=== PATIENT | male | born 1970 | race Caucasian/White ===

== ENCOUNTER 2021-11-01 07:26 | Emergency (ER) | payer BC ==
[2021-11-01] MEDS ORDERED: TORAdol 30 mg Injection IV ONE (07:46)
[2021-11-01] MEDS ORDERED: TORAdol 30 mg Injection ONE (07:48)
[2021-11-01] MEDS ORDERED: Sodium Chloride 0.9% 1000 ML 1,000 ML IV STA (08:11)
[2021-11-01] MEDS ORDERED: Sodium Chloride 0.9% 1000 ML 1,000 ML ONE (08:20)
--- NOTE | 2021-11-01 08:40 | ERPHSYRPT ---
- History of Present Illness Historian: patient Exam Limitations: no limitations Patient Subjective Stated Complaint: Right sided flank pain Triage Nursing Assessment: Patient ambulated back to ED and transferred self to bed. Patient A+O X3. Patient's skin pink, warm and dry. Patient complains of right flank pain and right sided abdominal pain since Monday. Patient has hx of kidney stones and contacted his urologist on Monday and prescribed his pain med and told him to go to ER if he needed. Patient complains of constant sharp pain 8/10 to right flank. Abdomen soft and round with BS X 4. patient complains of nausea but denies vomiting. Physician History: 51 yo wm w h/o multiple kidney stones presents w R flank pain x 3 days. Pain is 8/10 but has been up to 10/10. He has had nausea wo vomiting/dysuria/hematuria/fever/chest pain/cough. Pt's urologist is in [place] at . Timing/Duration: other (3 days) Activities at Onset: rest Quality: sharpness, stabbing Abdominal Pain Onset Location: flank (R flank) Pain Radiation: no radiation Severity of Pain-Max: severe Modifying Factors: Improves With: nothing Associated Symptoms: back, nausea, No chest pain, No diaphoresis, No diarrhea, No fever/chills, No fatigue, No headache, No heartburn, No loss of appetite, No neck pain, No rash, No shortness of breath, No syncope, No testicular pain, No vomiting, No weakness Previous symptoms: same symptoms as today Allergies/Adverse Reactions: No Known Drug Allergies Allergy (Unverified 11/01/21 07:31) Hx Influenza Vaccination/Date Given: Yes Hx Pneumococcal Vaccination/Date Given: No Immunizations Up to Date: Yes Travel Risk - International Travel Have you traveled outside of the country in past 3 weeks: No - Coronavirus Screening Are you exhibiting any of the following symptoms?: No Close contact with a COVID-19 positive Pt in past 14-21 Days: No - Vaccine Status Have you recieved a Covid-19 vaccination: Yes 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: [employer] - Vaccination Dates Date of 2cond Vaccination (if applicable): March 2021 - Review of Systems Constitutional: No Symptoms Eyes: No Symptoms Ears, Nose, & Throat: No Symptoms Respiratory: No Symptoms Cardiac: No Symptoms Abdominal/Gastrointestinal: No Symptoms, Nausea Genitourinary Symptoms: No Symptoms, Flank Pain Musculoskeletal: No Symptoms Skin: No Symptoms Neurological: No Symptoms Psychological: No Symptoms Endocrine: No Symptoms Hematologic/Lymphatic: No Symptoms Immunological/Allergic: No Symptoms - Past Medical History Pertinent Past Medical History: Yes Neurological History: No Pertinent History ENT History: No Pertinent History Cardiac History: No Pertinent History Respiratory History: No Pertinent History Endocrine Medical History: No Pertinent History Musculoskeletal History: No Pertinent History GI Medical History: No Pertinent History History: Other Psycho-Social History: No Pertinent History Male Reproductive Disorders: No Pertinent History Other Medical History: partial nephrectomy 2017 - Past Surgical History Past Surgical History: Yes Neuro Surgical History: No Pertinent History Cardiac: No Pertinent History Respiratory: No Pertinent History Gastrointestinal: No Pertinent History Genitourinary: Other Musculoskeletal: No Pertinent History Male Surgical History: No Pertinent History - Social History Smoking Status: Never smoker Exposure to second hand smoke: No Drug Use: none Patient Lives Alone: No Significant Family History: no pertinent family hx - Nursing Vital Signs Nursing Vital Signs: Initial Vital Signs Temperature 97.9 F 11/01/21 07:34 Pulse Rate 88 11/01/21 07:34 Respiratory Rate 18 11/01/21 07:34 Blood Pressure 136/95 11/01/21 07:34 O2 Sat by Pulse Oximetry 97 11/01/21 07:34 Pain Scale Pain Intensity 0 Mildly hypertensive - Physical Exam General Appearance: no apparent distress Eye Exam: PERRL/EOMI, eyes nml inspection Ears, Nose, Throat Exam: normal ENT inspection, TMs normal, pharynx normal, moist mucous membranes Neck Exam: normal inspection, non-tender, supple, full range of motion, No menin gismus, No mass, No Brudzinski, No Kernig's, No carotid bruit Respiratory Exam: normal breath sounds, lungs clear, airway intact, No respiratory distress Cardiovascular Exam: regular rate/rhythm, normal heart sounds, normal peripheral pulses, No murmur Gastrointestinal/Abdomen Exam: soft, normal bowel sounds, No tenderness Rectal Exam: deferred Back Exam: normal inspection, normal range of motion, No CVA tenderness, No vertebral tenderness Extremity Exam: normal inspection, normal range of motion Neurologic Exam: alert, oriented x 3, 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, 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, normal mood/affect, nml cerebellar function, sensation nml, No motor deficits, No sensory deficit Skin Exam: normal color, warm, dry Lymphatic Exam: adenopathy SpO2 Interpretation: normal SpO2: 94 O2 Delivery: Room Air - Course Nursing assessment & vital signs reviewed: Yes - CT Exams Abdomen/Pelvis CT Interpretation: Discussed w/radiologist (1cm prox R ureteral stone) Ordered Tests: Active Orders 24 hr Category Date Time Status ABDOMEN AND PELVIS W/0 CONTRAS [CT] Stat Exams 11/01/21 08:11 Completed CBC W DIFF Stat Lab 11/01/21 08:00 Completed CMP Stat Lab 11/01/21 08:00 Completed UA W/RFX UR CULTURE Stat Lab 11/01/21 08:00 Completed Medication Summary Discontinued Medications Generic Name Dose Route Start Last Admin Trade Name Freq PRN Reason Stop Dose Admin Sodium Chloride 1,000 mls @ 999 mls/hr 11/01/21 08:11 11/01/21 09:56 Sodium Chloride 0.9% 1000 Ml IV 11/01/21 09:11 Infused .Q1H1M STA Infusion Sodium Chloride Confirm 11/01/21 08:20 Sodium Chloride 0.9% 1000 Ml Administered 11/01/21 08:21 Dose 1,000 mls @ ud .ROUTE .STK-MED ONE Ketorolac Tromethamine 15 mg 11/01/21 07:46 11/01/21 07:50 Ketorolac Tromethamine 30 Mg/Ml Inj IV 11/01/21 07:47 15 mg STAT ONE Administration Ketorolac Tromethamine Confirm 11/01/21 07:48 Ketorolac Tromethamine 30 Mg/Ml Inj Administered 11/01/21 07:49 Dose 30 mg .ROUTE .STK-MED ONE Lab/Rad Data: Laboratory Result Diagrams 11/01/21 08:00 11/01/21 08:00 Laboratory Results 11/01/21 11/01/21 11/01/21 Range/Units 08:00 08:00 08:00 WBC 11.6 H (4.0-10.5) K/mm3 RBC 4.54 (4.1-5.6) M/mm3 Hgb 14.5 (12.5-18.0) gm/dl Hct 44.0 (42-50) % MCV 96.9 (78-100) fl MCH 31.9 (26-32) pg MCHC 33.0 (32-36) g/dl RDW 14.0 (11.5-14.0) % Plt Count 222 (150-450) K/mm3 MPV 12.3 H (7.5-11.0) fl Gran % 62.4 (36.0-66.0) % Eos # (Auto) 0.11 (0-0.5) Absolute Lymphs (auto) 2.73 (1.0-4.6) Absolute Monos (auto) 1.51 H (0.0-1.3) Lymphocytes % 23.6 L (24.0-44.0) % Monocytes % 13.0 H (0.0-12.0) % Eosinophils % 0.9 (0.00-5.0) % Basophils % 0.1 (0.0-0.4) % Absolute Granulocytes 7.22 H (1.4-6.9) Basophils # 0.01 (0-0.4) Sodium 137 (137-145) mmol/L Potassium 3.4 L (3.5-5.1) mmol/L Chloride 104 (98-107) mmol/L Carbon Dioxide 25 (22-30) mmol/L Anion Gap 11.5 (5-15) MEQ/L BUN 13 (9-20) mg/dL Creatinine 1.59 H (0.66-1.25) mg/dL Estimated GFR 49.2 ML/MIN Glucose 101 (74-106) mg/dL Calcium 8.9 (8.4-10.2) mg/dL Total Bilirubin 1.00 (0.2-1.3) mg/dL AST 25 (17-59) U/L ALT 19 (0-50) U/L Alkaline Phosphatase 76 (38-126) U/L Serum Total Protein 7.5 (6.3-8.2) g/dL Albumin 4.2 (3.5-5.0) g/dL Urine Color STRAW (YELLOW) Urine Appearance CLEAR (CLEAR) Urine pH 6.0 (5-6) Ur Specific [place] 1.004 (1.005-1.025) Urine Protein NEGATIVE (Negative) Urine Ketones NEGATIVE (NEGATIVE) Urine Blood MODERATE (0-5) Barrie/ul Urine Nitrite NEGATIVE (NEGATIVE) Urine Bilirubin NEGATIVE (NEGATIVE) Urine Urobilinogen NEGATIVE (0-1) mg/dL Ur Leukocyte Esterase NEGATIVE (NEGATIVE) Urine WBC (Auto) 0-2 (0-5) /HPF Urine RBC (Auto) 3-5 (0-2) /HPF U Epithel Cells (Auto) FEW (FEW) /HPF Urine Bacteria (Auto) FEW (NEGATIVE) /HPF Urine Culture Reflexed NO (NO) Urine Glucose NEGATIVE (NEGATIVE) mg/dL Slides for Path Review YES - Progress Progress Note: 11/01/21 11:21 Pt's pain 1-2 after 15mg IV Toradol 1L NS bolus Spoke w Dr. Callejas, will have office call for appointment. Wants to start Flomax. 11/01/21 11:28 11/01/21 18:19 Dr. Callejas wants pt to go to ER in [place] if worse. Counseled pt/family regarding: lab results, diagnosis, need for follow-up, rad results - Departure Departure Disposition: Home Clinical Impression: Ureterolithiasis Condition: Stable Critical Care Time: No Referrals: HEBERT FLORES [Primary Care Provider] - Follow up/PCP as directed Instructions: Kidney Stones (DC) Additional Instructions: Strain all urine Pain meds as needed Flomax once a day If pain restarts or if you develop a temperature greater than 100.5, go to aER in [place] per Dr. Callejas, so that you can be admitted Prescriptions: Tamsulosin HCl 0.4 mg [Flomax 0.4 MG] 0.4 mg PO DAILY #7 cap Oxycodone HCl/Acetaminophen [Percocet 10-325 mg Tablet] 1 each PO Q4-6HPRN PRN #7 tablet MDD 4 tabs PRN Reason: Pain
--- NOTE | 2021-11-01 09:31 | XRAY ---
Indication: Right flank pain. Multiple contiguous axial images obtained through the abdomen and pelvis without contrast using renal stone protocol. Comparison: None Lung bases demonstrates a few tiny right lower lobe calcified granulomas. No infiltrate or effusion. Heart not enlarged. Proximal right ureter demonstrates a 1 cm calculus, approximately L3 level. Moderate hydronephrosis consistent with obstructive uropathy. Additional two right and one left renal calculi, largest on the left measuring 1 cm. Previous gastric bypass surgery. Noncontrasted stomach and bowel loops nonobstructed. Normal appendix. No free fluid/air. Tiny gallstones/gravel near the fundus of the gallbladder. Spleen is enlarged measuring 15.2 cm with calcified granuloma. Remaining liver, gallbladder, pancreas, spleen, adrenal glands, kidneys, ureters, bladder, and aorta are unremarkable for noncontrast exam. Osseous structures intact with mild degenerative changes throughout the thoracolumbar spine. 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 Impression: 1. 1 cm proximal right ureter calculus producing obstructive uropathy as detailed. Additional bilateral renal calculi. 2. Tiny gallstones/gravel, chronic bony findings, and old granulomatous disease.
[2021-11-01 09:35] LABS: Absolute Neutrophil Ct (ANC) 7.22 (1.4-6.9); Basophil (Absolute #) 0.01 (0-0.4); Eosinophil % 0.9 % (0.00-5.0); Eosinophil (Absolute #) 0.11 (0-0.5); Hemoglobin 14.5 gm/dl (12.5-18.0); Lymphocyte (Absolute #) 2.73 (1.0-4.6); Lymphocytes % 23.6 % (24.0-44.0); Mean Cell Volume 96.9 fl (78-100); Mean Corpuscular Hemoglobin 31.9 pg (26-32); Mean Platelet Volume 12.3 fl (7.5-11.0); Monocyte (Absolute #) 1.51 (0.0-1.3); Neutrophil % 62.4 % (36.0-66.0); Platelet Count 222 K/mm3 (150-450); Red Blood Count 4.54 M/mm3 (4.1-5.6); White Blood Count 11.6 K/mm3 (4.0-10.5)
[2021-11-01 09:43] LABS: Appearance CLEAR (CLEAR); Bilirubin NEGATIVE (NEGATIVE); Blood MODERATE Ery/ul (0-5); Glucose NEGATIVE (NEGATIVE); Ketones NEGATIVE (NEGATIVE); Leukocyte Esterase NEGATIVE (NEGATIVE); Nitrite NEGATIVE (NEGATIVE); Protein,Urine Dip NEGATIVE (Negative); Specific Gravity 1.004 (1.005-1.025); Urobilinogen NEGATIVE mg/dL (0-1); WBC 0-2 /HPF (0-5)
[2021-11-01 09:44] LABS: ALBUMIN 4.2 g/dL (3.5-5.0); ANION GAP 11.5 MEQ/L (5-15); Bacteria FEW /HPF (NEGATIVE); Calcium 8.9 mg/dL (8.4-10.2); Creatinine 1 1.59 mg/dL (0.66-1.25); EST GLOMERULAR FILTRATION RATE 49.2 ML/MIN; Epithelial Cells FEW /HPF (FEW); Potassium 3.4 mmol/L (3.5-5.1); Total Protein 7.5 g/dL (6.3-8.2)
[2021-11-01 09:53] LABS: Slide Review 1 YES
[2021-11-01 11:30] VITALS: BP 129/73; PULSE 70
[2021-11-01 11:34] VITALS: O2SAT 94
== END 2021-11-01 11:38 | disposition home or self-care (01) ==
LOC: ED 07:26
DX: N20.1 Calculus of ureter (principal); Z87.442 Personal history of urinary calculi; R10.9 Unspecified abdominal pain; R11.0 Nausea; Z79.891 Long term (current) use of opiate analgesic
CPT/HCPCS: 36000; 36415; 74176; 80053; 81001; 85025; 96360; 96374; 99284; J1885

== ENCOUNTER 2022-01-17 18:49 | Emergency (ER) | payer BC ==
[2022-01-17] MEDS ORDERED: MORPHINE SULFATE 4 MG INJ IV ONE ×2 (19:58→21:54)
[2022-01-17] MEDS ORDERED: Zofran 4 MG/2 ML VIAL IV ONE (19:58)
[2022-01-17] MEDS ORDERED: Sodium Chloride 0.9% 1000 ML 1,000 ML IV SCH (20:00)
--- NOTE | 2022-01-17 20:08 | ERPHSYRPT ---
- History of Present Illness Time Seen by Provider: 01/17/22 19:50 Historian: patient Exam Limitations: no limitations Patient Subjective Stated Complaint: Pt states "I have ulcerative colitis and I was prescribed prednisone for it and I think I have a ulcer from it. " Triage Nursing Assessment: Pt presents to ED ambulatory to bed, pt c/o diffuse abd pain for 2 weeks, pt has hx of ulcerative colitis and was prescribed prednisone 20 mg for it, pt is currently on 3 pills a day, pt c/o of diarrhea for a couple days, last BM was 01/17/2022 at 1600, denies blood in stool, denies fever or vomiting, rating pain 8/10 Physician History: Patient is a 52-year-old male presents to emergency department for evaluation of diffuse abdominal pain. Patient has a history of ulcerative colitis. He is on prednisone 20 mg 3 times daily. Patient has had issues with chronic steroid use. Patient states he had a bowel movement that was dark and tarry. 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 Felecia Payne who advised patient come to our ED for an evaluation. Patient's pain described as an ache that is generalized. Pain rated 8 out of 10. No associated fever. No vomiting. No chest pain or shortness of breath. No patsy blood. No hematochezia. Symptoms are moderate in intensity. No specific worsening or improving factors. Patient voices no other complaints or concerns at this time. Timing/Duration: day(s) (2 days) Activities at Onset: none Quality: aching Abdominal Pain Onset Location: generalized abdomen Pain Radiation: no radiation Severity of Pain-Max: moderate Severity of Pain-Current: moderate Modifying Factors: Improves With: nothing Associated Symptoms: diarrhea, No fever/chills, No vomiting Previous symptoms: same symptoms as today Allergies/Adverse Reactions: No Known Drug Allergies Allergy (Verified 01/17/22 19:34) Home Medications: Prednisone 20 mg [Deltasone 20 mg] 01/17/22 [History] Hx Tetanus, Diphtheria Vaccination/Date Given: Yes Hx Influenza Vaccination/Date Given: No Hx Pneumococcal Vaccination/Date Given: No Immunizations Up to Date: Yes Travel Risk - International Travel Have you traveled outside of the country in past 3 weeks: No - Coronavirus Screening Are you exhibiting any of the following symptoms?: No Close contact with a COVID-19 positive Pt in past 14-21 Days: No - Vaccine Status Have you recieved a Covid-19 vaccination: Yes 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: [employer] - Vaccination Dates Date of 2cond Vaccination (if applicable): March 2021 - Review of Systems Constitutional: No Symptoms, No Fever, No Chills Eyes: No Symptoms Ears, Nose, & Throat: No Symptoms Respiratory: No Symptoms, No Cough, No Dyspnea Cardiac: No Symptoms, No Chest Pain, No Edema, No Syncope Abdominal/Gastrointestinal: No Symptoms, No Abdominal Pain, No Nausea, No Vomiting, No Diarrhea Genitourinary Symptoms: No Symptoms, No Dysuria Musculoskeletal: No Symptoms, No Back Pain, No Neck Pain Skin: No Symptoms, No Rash Neurological: No Symptoms, No Dizziness, No Focal Weakness, No Sensory Changes Psychological: No Symptoms Endocrine: No Symptoms Hematologic/Lymphatic: No Symptoms Immunological/Allergic: No Symptoms All Other Systems: Reviewed and Negative - Past Medical History Pertinent Past Medical History: Yes Neurological History: No Pertinent History ENT History: No Pertinent History Cardiac History: No Pertinent History Respiratory History: No Pertinent History Endocrine Medical History: No Pertinent History Musculoskeletal History: No Pertinent History GI Medical History: No Pertinent History History: Other Psycho-Social History: No Pertinent History Male Reproductive Disorders: No Pertinent History Other Medical History: partial nephrectomy 2017. ulcerative colitis - Past Surgical History Past Surgical History: Yes Neuro Surgical History: No Pertinent History Cardiac: No Pertinent History Respiratory: No Pertinent History Gastrointestinal: No Pertinent History Genitourinary: Other Musculoskeletal: No Pertinent History Male Surgical History: No Pertinent History - Social History Smoking Status: Never smoker Exposure to second hand smoke: No Drug Use: none Patient Lives Alone: No Significant Family History: no pertinent family hx - Nursing Vital Signs Nursing Vital Signs: Initial Vital Signs Temperature 98.2 F 01/17/22 19:35 Pulse Rate 77 01/17/22 19:35 Respiratory Rate 16 01/17/22 19:35 Blood Pressure 131/79 01/17/22 19:35 O2 Sat by Pulse Oximetry 99 01/17/22 19:35 Pain Scale Pain Intensity 6 - Physical Exam General Appearance: no apparent distress, alert Eye Exam: PERRL/EOMI, eyes nml inspection Ears, Nose, Throat Exam: normal ENT inspection, TMs normal, pharynx normal, moist mucous membranes Neck Exam: normal inspection, non-tender, supple, full range of motion Respiratory Exam: normal breath sounds, lungs clear, airway intact, No respiratory distress Cardiovascular Exam: regular rate/rhythm, normal heart sounds, normal peripheral pulses Gastrointestinal/Abdomen Exam: soft, other (Generalized abdominal pain. 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 Tiny gallbladder sludge/gravel, and L5 spondylolysis without spondylolisthesis. No new acute findings.) Ordered Tests: Active Orders 24 hr Category Date Time Status IV Insertion STAT Care 01/17/22 19:58 Active ABDOMEN AND PELVIS W CONTRAST [CT] Stat Exams 01/17/22 19:59 Taken CBC W DIFF Stat Lab 01/17/22 20:20 Completed CMP Stat Lab 01/17/22 20:20 Completed LIPASE Stat Lab 01/17/22 20:20 Completed TROPONIN Q3H Lab 01/17/22 20:20 Completed TROPONIN Q3H Lab 01/17/22 23:00 Ordered TROPONIN Q3H Lab 01/18/22 02:00 Ordered TROPONIN Q3H Lab 01/18/22 05:00 Ordered TROPONIN Q3H Lab 01/18/22 08:00 Ordered Medication Summary Generic Name Dose Route Start Last Admin Trade Name Freq PRN Reason Stop Dose Admin Sodium Chloride 1,000 mls @ 100 mls/hr 01/17/22 20:00 01/17/22 20:23 Sodium Chloride 0.9% 1000 Ml IV 02/16/22 19:59 100 mls/hr .Q10H NOHELIA Administration Discontinued Medications Generic Name Dose Route Start Last Admin Trade Name Freq PRN Reason Stop Dose Admin Morphine Sulfate 4 mg 01/17/22 19:58 01/17/22 20:22 Morphine Sulfate 4 Mg/Ml Injection IV 01/17/22 19:59 4 mg STAT ONE Administration Morphine Sulfate Confirm 01/17/22 20:22 Morphine Sulfate 4 Mg/Ml Injection Administered 01/17/22 20:23 Dose 4 mg .ROUTE .STK-MED ONE Morphine Sulfate 4 mg 01/17/22 21:54 01/17/22 21:57 Morphine Sulfate 4 Mg/Ml Injection IV 01/17/22 21:55 4 mg STAT ONE Administration Morphine Sulfate Confirm 01/17/22 21:56 Morphine Sulfate 4 Mg/Ml Injection Administered 01/17/22 21:57 Dose 4 mg .ROUTE .STK-MED ONE Ondansetron HCl 4 mg 01/17/22 19:58 01/17/22 20:22 Ondansetron Hcl 4 Mg/2 Ml Vial IV 01/17/22 19:59 4 mg STAT ONE Administration Ondansetron HCl Confirm 01/17/22 20:22 Ondansetron Hcl 4 Mg/2 Ml Vial Administered 01/17/22 20:23 Dose 4 mg .ROUTE .STK-MED ONE Lab/Rad Data: Laboratory Result Diagrams 01/17/22 20:20 01/17/22 20:20 Laboratory Results 01/17/22 01/17/22 01/17/22 Range/Units 20:20 20:20 20:20 WBC 10.5 (4.0-10.5) K/mm3 RBC 4.62 (4.1-5.6) M/mm3 Hgb 15.2 (12.5-18.0) gm/dl Hct 45.9 (42-50) % MCV 99.4 (78-100) fl MCH 32.9 H (26-32) pg MCHC 33.1 (32-36) g/dl RDW 14.7 H (11.5-14.0) % Plt Count 163 (150-450) K/mm3 MPV 11.5 H (7.5-11.0) fl Gran % 62.8 (36.0-66.0) % Eos # (Auto) 0.08 (0-0.5) Absolute Lymphs (auto) 3.06 (1.0-4.6) Absolute Monos (auto) 0.77 (0.0-1.3) Lymphocytes % 29.0 (24.0-44.0) % Monocytes % 7.3 (0.0-12.0) % Eosinophils % 0.8 (0.00-5.0) % Basophils % 0.1 (0.0-0.4) % Absolute Granulocytes 6.62 (1.4-6.9) Basophils # 0.01 (0-0.4) Sodium 142 (137-145) mmol/L Potassium 3.8 (3.5-5.1) mmol/L Chloride 107 (98-107) mmol/L Carbon Dioxide 27 (22-30) mmol/L Anion Gap 12.8 (5-15) MEQ/L BUN 13 (9-20) mg/dL Creatinine 0.94 (0.66-1.25) mg/dL Estimated GFR > 60.0 ML/MIN Glucose 104 (74-106) mg/dL Calcium 8.0 L (8.4-10.2) mg/dL Total Bilirubin 0.50 (0.2-1.3) mg/dL AST 20 (17-59) U/L ALT 30 (0-50) U/L Alkaline Phosphatase 72 (38-126) U/L Troponin I < 0.012 (0.000-0.034) ng/mL Serum Total Protein 6.5 (6.3-8.2) g/dL Albumin 3.7 (3.5-5.0) g/dL Lipase 66 (23-300) U/L - Progress Progress: improved Progress Note: Case discussed with Dr. Caballero, Dr. Felecia paynes group partner. He does not feel patient needs to be transferred as his vitals are stable his hemoglobin is normal and patient's pain is controlled at this time. He advises 40 mg of Protonix twice daily and follow-up with Dr. Payne on Monday as scheduled. Plan of care discussed with patient. He agrees with plan of care. He will fol low-up with Dr. Payne on Monday as discussed. We will administer a dose of Protonix in our ED prior to discharge. 01/17/22 22:35 Patient received for [place] for home. A handwritten prescription for [place] was also provided to patient. Portions of this note were created with voice recognition technology. There may be grammatical, spelling, punctuation or sound alike errors 01/17/22 22:53 Counseled pt/family regarding: lab results, diagnosis, rad results - Departure Departure Disposition: Home Clinical Impression: Dark stools, Epigastric pain Condition: Stable Critical Care Time: No Referrals: HEBERT FLORES [Primary Care Provider] - Follow up/PCP as directed Additional Instructions: Discharge/Care Plan DENG STANLEY was seen on 01/17/22 in the Emergency Room. The patient was counseled regarding Diagnosis,Lab results, Imaging studies, need for follow up and when to return to the Emergency Room. Prescriptions given: Discharge Note I have spoken with the patient and/or caregivers. I have explained the patient's condition, diagnosis and treatment plan based on the information available to me at this time. I have answered the patient's and/or caregiver's questions and addressed any concerns. The patient and/or caregivers have as good understanding of the patient's diagnosis, condition and treatment plan as can be expected at this point. The vital signs have been stable. The patient's condition is stable and appropriate for discharge from the emergency department. The patient will pursue further outpatient evaluation with the primary care physician or other designated or consulting physician as outlined in the discharge instructions. The patient and/or caregivers are agreeable to this plan of care and follow-up instructions have been explained in detail. The patient and/or caregivers have received these instruction. The patient/and or caregivers are aware that any significant change in condition or worsening of symptoms should prompt an immediate return to this or the closest emergency department or call 911. Prescriptions: PANTOPRAZOLE 40 mg Tablet [Protonix 40MG Tablet] 40 mg PO BID 7 Days #14 tab
[2022-01-17] MEDS ORDERED: Sodium Chloride 0.9% 1000 ML 1,000 ML ONE (20:22)
[2022-01-17] MEDS ORDERED: MORPHINE SULFATE 4 MG INJ ONE ×2 (20:22→21:56)
[2022-01-17] MEDS ORDERED: Zofran 4 MG/2 ML VIAL ONE (20:22)
[2022-01-17 20:27] LABS: Absolute Neutrophil Ct (ANC) 6.62 (1.4-6.9); Basophil (Absolute #) 0.01 (0-0.4); Eosinophil % 0.8 % (0.00-5.0); Eosinophil (Absolute #) 0.08 (0-0.5); Hematocrit 45.9 % (42-50); Hemoglobin 15.2 gm/dl (12.5-18.0); Lymphocyte (Absolute #) 3.06 (1.0-4.6); Mean Cell Volume 99.4 fl (78-100); Mean Corpuscular Hemoglobin 32.9 pg (26-32); Mean Corpuscular Hgb Concent. 33.1 g/dl (32-36); Mean Platelet Volume 11.5 fl (7.5-11.0); Monocyte (Absolute #) 0.77 (0.0-1.3); Monocytes % 7.3 % (0.0-12.0); Neutrophil % 62.8 % (36.0-66.0); Platelet Count 163 K/mm3 (150-450); Red Blood Count 4.62 M/mm3 (4.1-5.6); Red Cell Distribution Width 14.7 % (11.5-14.0); White Blood Count 10.5 K/mm3 (4.0-10.5)
[2022-01-17 20:58] LABS: ALBUMIN 3.7 g/dL (3.5-5.0); ALKALINE PHOSPHATASE 72 U/L (38-126); ANION GAP 12.8 MEQ/L (5-15); BLOOD UREA NITROGEN 13 mg/dL (9-20); CHLORIDE 107 mmol/L (98-107); Carbon Dioxide 27 mmol/L (22-30); Creatinine 1 0.94 mg/dL (0.66-1.25); EST GLOMERULAR FILTRATION RATE > 60.0 ML/MIN; Glucose 104 mg/dL (74-106); LIPASE 66 U/L (23-300); Potassium 3.8 mmol/L (3.5-5.1); SGOT/AST 20 U/L (17-59); SGPT/ALT 30 U/L (0-50); SODIUM 142 mmol/L (137-145); Total Protein 6.5 g/dL (6.3-8.2)
[2022-01-17] MEDS ORDERED: PROTONIX 40 MG IV IV ONE ×2 (22:36→22:43)
[2022-01-17 22:42] VITALS: O2SAT 99
[2022-01-17] MEDS ORDERED: NORCO 5/325 MG PO ONE (22:44)
[2022-01-17] MEDS ORDERED: NORCO 5/325 MG ONE (22:49)
[2022-01-17 23:07] VITALS: BP 123/66; PULSE 76
--- NOTE | 2022-01-18 09:03 | XRAY ---
Indication: Abdomen pain. History of colitis and bleeding ulcer. Multiple contiguous axial images obtained through the abdomen and pelvis using 80 cc Isovue 370 contrast. Comparison: November 01, 2021. Lung bases again demonstrates tiny right lower lobe and right infrahilar calcified granulomas. Minimal bibasilar dependent atelectasis. No infiltrate or effusion. Heart not enlarged. Again previous bariatric surgery. Noncontrasted stomach and bowel loops are nonobstructed again with normal appendix. Gallbladder normally distended again with tiny sludge/gravel in the dependent portion. Left lobe liver demonstrate stable 6 mm cyst. Both kidneys enhance and excrete with incidental 1.2 cm left upper pole renal cyst. No free fluid/air. Remaining liver, gallbladder, pancreas, spleen, adrenal glands, kidneys, ureters, bladder, and aorta appear unremarkable. No pathologic retroperitoneal lymphadenopathy. Osseous structures intact again with mild degenerative changes throughout the spine and left L5 spondylolysis without spondylolisthesis. No ventral or inguinal hernias. Impression: 1. Again bariatric surgery, tiny gallbladder gravel/sludge, tiny hepatic cyst, small left renal cyst, chronic bony findings, and old granulomatous disease. 2. Remaining CT abdomen/pelvis with contrast exam is negative.
== END 2022-01-17 23:08 | disposition home or self-care (01) ==
LOC: ED 18:49
DX: R10.13 Epigastric pain (principal); K92.1 Melena; K51.90 Ulcerative colitis, unspecified, without complications; Z79.52 Long term (current) use of systemic steroids; Z79.891 Long term (current) use of opiate analgesic
CPT/HCPCS: 36000; 36415; 74177; 80053; 83690; 84484; 85025; 96374; 96375; 99284; J2270; J2405; A9270-GY

== ENCOUNTER 2023-09-23 11:21 | Emergency (ER) | payer BC ==
[2023-09-23 11:44] VITALS: PULSE 98; TEMP 96.3; O2SAT 97
--- NOTE | 2023-09-23 11:51 | ERPHSYRPT ---
- History of Present Illness Time Seen by Provider: 09/23/23 11:49 Source: patient Exam Limitations: no limitations Patient Subjective Stated Complaint: Pt states that for a week he has had congestion, cough, off and on headache and fever, body aches, chest hurts from coughing, went to [facility] 2 days ago and tested for flu and covid and both were negative Triage Nursing Assessment: Pt brought self to the ER, vitals wnl, rates chest discomfort at 4/10 due to coughing, pulses normal, skin n/w/d, daughter and grandchild staying with pt and they are Flu A +, cough, congestion Physician History: Pt states that for a week he has had congestion, cough, off and on headache and fever, body aches, chest hurts from coughing, went to [facility] 2 days ago and tested for flu and covid and both were negative daughter and grandchild staying with pt and they are Flu A +, cough, congestion Timing/Duration: day(s) (3 days) Cough Quality/Degree: dry cough Associated Symptoms: chest pain/soreness, cough, headache, muscle aches, sore throat Allergies/Adverse Reactions: No Known Drug Allergies Allergy (Verified 09/23/23 11:44) Home Medications: Allopurinol 300 mg [Zyloprim 300 mg] 300 mg PO DAILY 09/23/23 [History] Cyanocobalamin 1000 Mcg/ml [Cyanocobalamin B-12 1000 MCG/ML] 1,000 mcg IJ UD 09/23/23 [History] Hydrocodone/Acetaminophen [Hydrocodone-Acetamin 5-325 mg] 1 tab PO BID PRN 09/23/23 [History] Metoprolol Succinate 25 mg Xl* [Toprol-Xl 25MG Tablets] 25 mg PO DAILY 09/23/23 [History] Upadacitinib [Rinvoq] 45 mg PO DAILY 09/23/23 [History] Hx Tetanus, Diphtheria Vaccination/Date Given: Yes Hx Influenza Vaccination/Date Given: No Hx Pneumococcal Vaccination/Date Given: No Travel Risk - International Travel Have you traveled outside of the country in past 3 weeks: No - Coronavirus Screening Symptoms: Fever, Cough: New Onset, Shortness of Breath, Headaches/Body Aches/Fatigue Close contact with a COVID-19 positive Pt in past 14-21 Days: No - Vaccine Status Have you recieved a Covid-19 vaccination: Yes [employer]: Pfizer - Vaccination Dates Date of 2cond Vaccination (if applicable): March 2021 - Review of Systems Constitutional: Fever, Chills, Malaise, Weakness Eyes: No Symptoms Ears, Nose, & Throat: No Symptoms Respiratory: Cough, No Dyspnea Cardiac: Chest Pain, No Edema, No Syncope Abdominal/Gastrointestinal: No Abdominal Pain, No Nausea, No Vomiting, No Diarrhea Genitourinary Symptoms: No Dysuria Musculoskeletal: No Back Pain, No Neck Pain Skin: No Rash Neurological: No Dizziness, No Focal Weakness, No Sensory Changes Psychological: No Symptoms Endocrine: No Symptoms All Other Systems: Reviewed and Negative - Past Medical History Pertinent Past Medical History: Yes Neurological History: No Pertinent History ENT History: No Pertinent History Cardiac History: No Pertinent History Respiratory History: No Pertinent History Endocrine Medical History: No Pertinent History Musculoskeletal History: No Pertinent History GI Medical History: No Pertinent History History: Other Psycho-Social History: No Pertinent History Male Reproductive Disorders: No Pertinent History Other Medical History: partial nephrectomy 2017. ulcerative colitis - Past Surgical History Past Surgical History: Yes Neuro Surgical History: No Pertinent History Cardiac: No Pertinent History Respiratory: No Pertinent History Gastrointestinal: No Pertinent History Genitourinary: Other Musculoskeletal: No Pertinent History Male Surgical History: No Pertinent History - Social History Smoking Status: Never smoker Exposure to second hand smoke: No Drug Use: none Patient Lives Alone: No Significant Family History: no pertinent family hx - Nursing Vital Signs Nursing Vital Signs: Initial Vital Signs Temperature 96.3 F 09/23/23 11:33 Pulse Rate 98 H 09/23/23 11:33 Blood Pressure 114/75 09/23/23 11:33 O2 Sat by Pulse Oximetry 96 09/23/23 11:33 Pain Scale Pain Intensity 4 - Physical Exam General Appearance: no apparent distress, alert Eye Exam: PERRL/EOMI, eyes nml inspection Ears, Nose, Throat Exam: normal ENT inspection, TMs normal, pharynx normal, moist mucous membranes Neck Exam: normal inspection, non-tender, supple, full range of motion Respiratory Exam: normal breath sounds, lungs clear, No respiratory distress Cardiovascular Exam: regular rate/rhythm, normal heart sounds Gastrointestinal/Abdomen Exam: soft, No tenderness Back Exam: normal inspection, No CVA tenderness, No vertebral tenderness Extremity Exam: normal inspection, normal range of motion Neurologic Exam: alert, oriented x 3, cooperative, normal mood/affect, sensation nml, No motor deficits Skin Exam: normal color, warm, dry, No rash Lymphatic Exam: No adenopathy SpO2: 97 - Course Nursing assessment & vital signs reviewed: Yes Ordered Tests: Active Orders 24 hr Category Date Time Status CBC W DIFF Stat Lab 09/23/23 11:48 Completed CMP Stat Lab 09/23/23 11:48 Completed Medication Summary Discontinued Medications Generic Name Dose Route Start Last Admin Trade Name Dwayne PRN Reason Stop Dose Admin Acetaminophen 975 mg 09/23/23 12:00 09/23/23 12:06 Acetaminophen 325 Mg Tablet PO 09/23/23 12:01 975 mg STAT ONE Administration Acetaminophen Confirm 09/23/23 12:04 Acetaminophen 325 Mg Tablet Administered 09/23/23 12:05 Dose 975 mg .ROUTE .STK-MED ONE Ibuprofen 600 mg 09/23/23 12:00 09/23/23 12:06 Ibuprofen 600 Mg Tablet PO 09/23/23 12:01 600 mg STAT ONE Administration Ibuprofen Confirm 09/23/23 12:04 Ibuprofen 600 Mg Tablet Administered 09/23/23 12:05 Dose 600 mg .ROUTE .STK-MED ONE Lab/Rad Data: Laboratory Result Diagrams 09/23/23 11:48 09/23/23 11:48 Laboratory Results 09/23/23 09/23/23 09/23/23 Range/Units 11:48 11:48 11:48 WBC 11.3 H (4.0-10.5) x10^3/uL RBC 4.41 (4.1-5.6) x10^6/uL Hgb 13.0 (12.5-18.0) g/dL Hct 38.7 L (42-50) % MCV 87.8 (78-100) fL MCH 29.5 (26-32) pg MCHC 33.6 (32-36) g/dL RDW 14.1 H (11.5-14.0) % Plt Count 204 (150-450) x10^3/uL MPV 11.4 H (7.5-11.0) fL Gran % 79.9 H (36.0-66.0) % Immature Gran % (Auto) 0.4 (0.00-0.4) % Nucleat RBC Rel Count 0.0 (0.00-0.1) % Eos # (Auto) 0.02 (0-0.5) x10^3/uL Immature Gran # (Auto) 0.05 H (0.00-0.03) x10^3u/L Absolute Lymphs (auto) 0.93 L (1.0-4.6) x10^3/uL Absolute Monos (auto) 1.24 (0.0-1.3) x10^3/uL Absolute Nucleated RBC 0.00 (0.00-0.01) x10^3u/L Lymphocytes % 8.3 L (24.0-44.0) % Monocytes % 11.0 (0.0-12.0) % Eosinophils % 0.2 (0.00-5.0) % Basophils % 0.2 (0.0-0.4) % Absolute Granulocytes 9.01 H (1.4-6.9) x10^3/uL Basophils # 0.02 (0-0.4) x10^3/uL Sodium 138 (137-145) mmol/L Potassium 3.4 L (3.5-5.1) mmol/L Chloride 106 (98-107) mmol/L Carbon Dioxide 20 L (22-30) mmol/L Anion Gap 14.8 (5-15) MEQ/L BUN 12 (9-20) mg/dL Creatinine 0.96 (0.66-1.25) mg/dL Estimated GFR 95.1 ML/MIN Glucose 118 H (74-106) mg/dL Calcium 9.0 (8.4-10.2) mg/dL Total Bilirubin 0.70 (0.2-1.3) mg/dL AST 32 (17-59) U/L ALT 33 (0-50) U/L Alkaline Phosphatase 55 (38-126) U/L Serum Total Protein 7.4 (6.3-8.2) g/dL Albumin 4.3 (3.5-5.0) g/dL Influenza Type A Ag POSITIVE (NEGATIVE) Influenza Type B Ag NEGATIVE (NEGATIVE) RSV (PCR) NEGATIVE (NEGATIVE) SARS-CoV-2 (PCR) NEGATIVE (NEGATIVE) - Progress Progress: improved Air Movement: good Blood Culture(s) Obtained: No Antibiotics given: No Counseled pt/family regarding: lab results, diagnosis, need for follow-up Medical Desision Making - Diagnostic Testing Diagnostic test were ordered, analyzed, and reviewed by me: Yes - Risk of complications Minimal Risk: Minimal risk of morbidity - Departure Departure Disposition: Home Clinical Impression: Influenza A Condition: Stable Critical Care Time: No Referrals: HEBERT FLORES [Primary Care Provider] - Follow up/PCP as directed Instructions: Cough, Adult (DC), Flu, Adult (DC) Additional Instructions: Discharge/Care Plan DENG STANLEY was seen on 09/23/23 in the Emergency Room. The patient was counseled regarding Diagnosis,Lab results, Imaging studies, need for follow up and when to return to the Emergency Room. Prescriptions given: Discharge Note I have spoken with the patient and/or caregivers. I have explained the patient's condition, diagnosis and treatment plan based on the information available to me at this time. I have answered the patient's and/or caregiver's questions and addressed any concerns. The patient and/or caregivers have as good understanding of the patient's diagnosis, condition and treatment plan as can be expected at this point. The vital signs have been stable. The patient's condition is stable and appropriate for discharge from the emergency department. The patient will pursue further outpatient evaluation with the primary care physician or other designated or consulting physician as outlined in the discharge instructions. The patient and/or caregivers are agreeable to this plan of care and follow-up instructions have been explained in detail. The patient and/or caregivers have received these instruction. The patient/and or caregivers are aware that any significant change in condition or worsening of symptoms should prompt an immediate return to this or the closest emergency department or call 911. DENG STANLEY was seen on 09/23/23 n the Emergency Room. At that time you w ere treated for an emergent condition, during your visit Laboratory, Radiology and/or other procedures may have been ordered. It is very important that you follow-up with your Primary Care Physician HEBERT FLORES within the next 24- 48 hours to review your Emergency Room visit and the final results of testing that was ordered. Some test results such as Urine Cultures, Blood Cultures, and other cultures if ordered will not be finalized for 24-48 hours. If you do not have a Primary Care Provider please call the medical records department at [phone] ext [phone] to obtain a copy of your results or you may sign into our patient portal to obtain these results by visiting us @ [email or web address] and completing the following steps: 1. Click on the Patient Portal link 2. Click the Patient Self Enrollment Link to complete the enrollment form and entering your 3. Once the enrollment form is completed you will receive an email with a temporary ID and password at the email address you provided. 4. Next choose a user name and password. Your user name must be at least 4 characters long and your password must be at least 4 characters long. 5. Choose a security question from the list and provide your answer to the question. If you already have signed into the Health Portal you may access your Health Care Information 24/04 by the following steps: 1. Login to our website @ [email or web address] 2. Enter your original user name and password. FAQS The [facility] Health Portal is an online tool that contains your Lab Results, Radiology Reports, Visit History, Discharge Instructions and Health Summary Lab and Radiology Results will not be available for 72 hours on the portal. The Portal is a secure site, passwords are encryted and URLs are re-written so they cannot be copied and pasted. You and authorized family members are the only ones who can access your Portal. Also there is a timeout feature that protects your information if you leave the Portal page open. If you have technical difficulty please use the Contact Us link on the page this will allow you to submit any questions you have regarding the Portal or you may contact the Medical Record Department at [phone]. Prescriptions: Oseltamivir 75 mg [Tamiflu 75MG Capsule] 75 mg PO BID #10 cap
[2023-09-23] MEDS ORDERED: TYLENOL 325 MG PO ONE (12:00)
[2023-09-23] MEDS ORDERED: MOTRIN 600 MG PO ONE (12:00)
[2023-09-23 12:04] LABS: Absolute Neutrophil Ct (ANC) 9.01 x10^3/uL (1.4-6.9); BASOPHIL % 0.2 % (0.0-0.4); Basophil (Absolute #) 0.02 x10^3/uL (0-0.4); Eosinophil % 0.2 % (0.00-5.0); Eosinophil (Absolute #) 0.02 x10^3/uL (0-0.5); Hematocrit 38.7 % (42-50); IMMATURE GRAN # 0.05 x10^3u/L (0.00-0.03); IMMATURE GRAN % 0.4 % (0.00-0.4); Lymphocyte (Absolute #) 0.93 x10^3/uL (1.0-4.6); Lymphocytes % 8.3 % (24.0-44.0); Mean Cell Volume 87.8 fL (78-100); Mean Corpuscular Hemoglobin 29.5 pg (26-32); Mean Corpuscular Hgb Concent. 33.6 g/dL (32-36); Mean Platelet Volume 11.4 fL (7.5-11.0); Monocyte (Absolute #) 1.24 x10^3/uL (0.0-1.3); Neutrophil % 79.9 % (36.0-66.0); Platelet Count 204 x10^3/uL (150-450); Red Blood Count 4.41 x10^6/uL (4.1-5.6); Red Cell Distribution Width 14.1 % (11.5-14.0); White Blood Count 11.3 x10^3/uL (4.0-10.5)
[2023-09-23] MEDS ORDERED: MOTRIN 600 MG ONE (12:04)
[2023-09-23] MEDS ORDERED: TYLENOL 325 MG ONE (12:04)
[2023-09-23 12:18] LABS: ALBUMIN 4.3 g/dL (3.5-5.0); ANION GAP 14.8 MEQ/L (5-15); BILIRUBIN,TOTAL 0.7 mg/dL (0.2-1.3); Creatinine 1 0.96 mg/dL (0.66-1.25); EST GLOMERULAR FILTRATION RATE 95.1 ML/MIN; Potassium 3.4 mmol/L (3.5-5.1); Total Protein 7.4 g/dL (6.3-8.2)
[2023-09-23 12:38] LABS: INFLUENZA B NEGATIVE (NEGATIVE); RESPIRATORY SYNCTIAL VIRUS NEGATIVE (NEGATIVE); SARS-CoV-2 Xpert Express NEGATIVE (NEGATIVE)
[2023-09-23 12:43] LABS: INFLUENZA A POSITIVE (NEGATIVE)
[2023-09-23] MEDS ORDERED: Tamiflu 75MG Capsule PO ONE ×2 (12:43→13:01)
[2023-09-23 13:13] VITALS: BP 108/84
== END 2023-09-23 13:15 | disposition home or self-care (01) ==
LOC: ED 11:21
DX: J10.1 Influenza due to other identified influenza virus with other respiratory manifestations (principal); R05.1 Acute cough; R51.9 Headache, unspecified; R50.9 Fever, unspecified; M79.10 Myalgia, unspecified site; Z79.891 Long term (current) use of opiate analgesic; Z79.899 Other long term (current) drug therapy
CPT/HCPCS: 0241U; 36415; 80053; 85025; 99283; A9270-GY